=== PATIENT | male | born 1950 | race Caucasian/White ===

== ENCOUNTER 2016-11-23 10:02 | Day surgery (SDC) | payer MEDICARE, OTHER ==
--- NOTE | ~2016-11-23 | EGD ---
EGD REPORT [facility] [address] [place]. [address] NAME: BRENDA FRIEND : 50 STATUS : REG [facility] PAT#: [id number] AGE: 65 ADM/REG DATE : 11/23/16 MR#: [id number] REPORT SERV DATE: 11/23/16 DICTATED BY: JANETT ACEVEDO DATE: 11/23/16 REPORT STATUS : Draft TRANSCRIBED BY: [employer] DATE: 11/23/16 [facility] Patient Name: Brenda Friend Date of : 1950 Attending MD: JANETT ACEVEDO MD Procedure Date No Time: 11/23/2016 Procedure: Colonoscopy Indications: positive cologuard Referring MD: DANIELA COPE MD Medicines: as per anesthesia Complications: No immediate complications. Procedure: Pre-Anesthesia Assessment: - ASA Grade Assessment: III - A patient with severe systemic disease. After I obtained informed consent, the scope was passed under direct vision. Throughout the procedure, the patient's blood pressure, pulse, and oxygen saturations were monitored continuously. The PCF [id number] was introduced through the anus and advanced to the cecum, identified by appendiceal orifice and ileocecal valve. The colonoscopy was performed without difficulty. The patient tolerated the procedure. The quality of the bowel preparation was adequate to identify polyps. Findings: The perianal and digital rectal examinations were normal. A sessile polyp was found in the transverse colon. The polyp was 5 mm in size. The polyp was removed with a jumbo cold forceps. Resection and retrieval were complete. A few small and large-mouthed diverticula were found in the sigmoid colon. Internal hemorrhoids were found during endoscopy and were mild. Impression: - One 5 mm polyp in the transverse colon. Resected and retrieved. - Diverticulosis in the sigmoid colon. - Internal hemorrhoids. Recommendation: - Await pathology results. - Repeat colonoscopy for surveillance based on pathology results. Procedure Code(s): --- Professional --- 55384, Colonoscopy, flexible, proximal to splenic flexure; with biopsy, single or multiple EGD REPORT [address] [address] NAME: BRENDA FRIEND : 50 STATUS : REG [facility]#: [id number] AGE: 65 ADM/REG DATE : 11/23/16 MR#: [id number] REPORT SERV DATE: 11/23/16 DICTATED BY: JANETT ACEVEDO DATE: 11/23/16 REPORT STATUS : Draft TRANSCRIBED BY: [email or web address] DATE: 11/23/16 Diagnosis Code(s): --- Professional --- D12.3, Benign neoplasm of transverse colon K64.8, Other hemorrhoids K57.30, Diverticulosis of large intestine without perforation or abscess without bleeding CPT copyright 2013 [employer]. All rights reserved. The codes documented in this report are preliminary and upon physician support coordinator review may be revised to meet current compliance requirements. JANETT ACEVEDO MD 11/23/2016 1:55 PM This report has been signed electronically. Number of Addenda: 0 Note Initiated On: 11/23/2016 1:22 PM Scope Withdrawal Time 0 hours 13 minutes 34 seconds [address] [place] [address]
[~2016-11-23 10:02] MED LIST: ANASPAZ0.125 MG PO; ASAB PO; B COMPLETE PO; BL FLAX SEED1000 MG OR; BYSTOLIC10 MG PO; BYSTOLIC20 MG PO; CALTRA600D PO; CHOLESTEROL COMPLETE; COQ-10200 MG OR; DSS PO; FISH-EPA1000 MG PO; FLONASE NAS; FOLIC PO; GARLIC; HYZAAR 100/25 T1 TAB PO; LUMIGAN OPH; MAGOX4 PO; METAMUCIL CAN7 OZ PO; MILK THISTLE; NAP500 PO; NEUR100 PO; ORAZINC110 MG PO; PLAVIX PO; PROTONIX PO; REG PO; SAMOLINIC PO; SELENIUM; SYN1 PO; SYN112 PO; TRAZ100 PO; ULTRAM50 PO; VITAMIN B-121000 MC1 SL; VITAMIN B-625 MG OR; VITAMIN D31000 UNIT PO; VITC500 PO; VITE PO; WELLXL150 PO; X5 PO; XALAT OPH; ZOL100 PO
== END 2016-11-23 23:59 | disposition home or self-care (01) ==
LOC: DMU 10:02
PROVIDERS: Internal Medicine Gastroenterology
PROC: 0DBL8ZX Excision of Transverse Colon, Via Natural or Artificial Opening Endoscopic, Diagnostic (ICD-10-PCS; principal; 2016-11-23 11:30)
DX: D12.3 Benign neoplasm of transverse colon (principal); I10 Essential (primary) hypertension; G47.30 Sleep apnea, unspecified; J45.909 Unspecified asthma, uncomplicated; E78.00 Pure hypercholesterolemia, unspecified; E03.9 Hypothyroidism, unspecified; F41.9 Anxiety disorder, unspecified; F32.9 Major depressive disorder, single episode, unspecified; Z86.73 Personal history of transient ischemic attack (TIA), and cerebral infarction without residual deficits; Z79.899 Other long term (current) drug therapy
CPT/HCPCS: 88305